=== PATIENT | female | born 1960 | race Caucasian/White ===

== ENCOUNTER 2024-02-16 17:12 | Observation (INO) ==
[2024-02-16 18:37] LABS: Urine Appearance Turbid; Urine Bilirubin Negative (Negative); Urine Blood Negative (Negative); Urine Color Yellow; Urine Glucose Negative (Negative); Urine Ketones Negative (Negative); Urine Nitrite 2+ (Negative); Urine Protein Negative (Negative); Urine Urobilinogen Negative (Negative)
[2024-02-16 18:43] LABS: ABS Basophils 0.1 10^3/uL (0.0-0.1); ABS Eosinophils 0.2 10^3/uL (0.0-0.5); ABS Monocytes 0.4 10^3/uL (0.0-0.9); ABS Neutrophils 1.9 10^3/uL (1.5-7.6); ABS Nucleated RBC 0.01 10^3/ul; Eosinophil % 4.2 %; Hematocrit 35.5 % (35-45); Hemoglobin 11.8 g/dL (11.5-14.3); INR 0.87 (0.83-1.13); Lymphocyte % 52.7 %; Mean Corpuscular Hemoglobin 32.4 pg (27-33); Mean Corpuscular Hgb Conc 33.2 g/dL (31-36); Mean Corpuscular Volume 97.6 fL (80-97); Mean Platelet Volume 8.4 fL (7.5-11.2); Nucleated Red Blood Cells % 0.2 %/100WBC (0.0-0.8); Platelet Count 239 10^3/uL (150-450); Red Blood Count 3.64 10^6/uL (3.63-4.92); Red Cell Distribution Width 14.6 % (12-17); White Blood Count 5.7 10^3/uL (3.8-11.8)
[2024-02-16] MEDS ORDERED: diazePAM INJ CARPUJECT 5 MG/ML SYRINGE ONE ×2 (18:47→20:02)
[2024-02-16] MEDS: Lactated Ringers 1000 ml BAG 250 ML IV ONE (18:49)
[2024-02-16] MEDS: Metoclopramide 5 MG/ML VIAL (10 mg) IV SLOW PU ONE (18:49)
[2024-02-16 18:54] LABS: Urine Bacteria 2+ /HPF (Absent); Urine Red Blood Cell Trace(0-2/hpf) /HPF (0-Trace); Urine Squamous Epithelial Cell Present /HPF (Absent); Urine White Blood Cell 3+(>20/hpf) /HPF (0-Trace)
[2024-02-16 19:01] LABS: Urine Benzodiazepine Screen None Detected (None Detect); Urine Cannabinoids Screen None Detected (None Detect); Urine Opiates Screen None Detected (None Detect)
[2024-02-16 19:02] LABS: High Sens Troponin Baseline 3 pg/mL (<15)
[2024-02-16 19:14] LABS: ALT 28 U/L (7-52); AST 25 U/L (13-39); Albumin 3.7 g/dL (3.2-5.2); Albumin/Globulin Ratio 2.1 (1-3); Alkaline Phosphatase 49 U/L (35-149); Anion Gap 5 mmol/L (2-16); Blood Urea Nitrogen 16 mg/dL (6-24); C Reactive Protein < 1.00 mg/L (<8.01); CO2 Carbon Dioxide 27 mmol/L (22-32); Calcium 9.2 mg/dL (8.6-10.3); Chloride 104 mmol/L (101-111); Creatinine, Serum 1.25 mg/dL (0.51-0.95); Globulin 1.8 g/dL (2-4); Glucose 98 mg/dL (70-100); Lipase < 10 U/L (11.0-82.0); Magnesium 1.9 mg/dL (1.9-2.7); Phosphorus 3.6 mg/dL (2.5-5.0); Potassium 4.6 mmol/L (3.5-5.0); Sodium 136 mmol/L (135-145); Total Bilirubin 0.2 mg/dL (0.2-1.0); Total Protein 5.5 g/dL (6.4-8.9); eGFR CKD-EPI 48.1 (>60)
[2024-02-16 19:30] LABS: Prolactin 9.8 ng/mL (1.0-25.0)
[2024-02-16 20:01] LABS: High Sensitivity Troponin 1 Hr < 3 pg/mL (<15)
[2024-02-17] MEDS: Enoxaparin 40 MG/0.4 ML SYR SUBCUT SCH (02:06)
[2024-02-17] MEDS ORDERED: DULoxetine DR 60 mg CAP PO SCH (09:00)
[2024-02-17] MEDS: DULoxetine DR 30 mg CAP PO SCH (09:08)
[2024-02-17] MEDS: Lidocaine PATCH 5% PATCH TRANSDERM SCH (09:12)
[2024-02-17] MEDS: cefTRIAXone 1 gm/50 mL D5W 1 GM/50 ML BAG IV SCH (10:54)
[2024-02-17 11:10] VITALS: BP 145/86
== END 2024-02-17 11:51 | disposition home or self-care (01) ==
LOC: ED 17:12 → EDHOLD 17:12 → SUATTDRO 02-17 00:53 → EDHOLD 02-17 11:50
PROVIDERS: ADMIT Student in an Organized Health Care Education/Training Program; ATTEND Hospitalist